=== PATIENT | male | born 1965 | race Caucasian/White ===

== ENCOUNTER 2019-11-26 17:19 | Inpatient (IN) | payer OTHER ==
[~2019-11-26] VITALS: Ht 180.3 cm; Wt 87.1 kg
[2019-11-26 17:22] VITALS: BP 113/71
[2019-11-26 18:40] LABS: URINE BILIRUBIN NEGATIVE (Negative); URINE BLOOD NEGATIVE (Negative); URINE CLARITY CLEAR; URINE COLOR YELLOW; URINE GLUCOSE-RANDOM* NEGATIVE (Negative); URINE KETONES NEGATIVE (Negative); URINE LEUKOCYTES-REFLEX NEGATIVE (Negative); URINE NITRITE-REFLEX NEGATIVE (Negative); URINE PROTEIN (DIPSTICK) NEGATIVE (Negative); URINE SPECIFIC GRAVITY 1.015 (1.005-1.035); URINE UROBILINOGEN 0.2 E.U./dl (0.2-1.0)
[2019-11-26 19:31] LABS: AMP/METHAMP Negative (Negative); BARBITURATES Negative (Negative); BENZODIAZEPINES Negative (Negative); COCAINE Negative (Negative); METHADONE Negative (Negative); OPIATES Negative (Negative); PCP Negative (Negative)
[2019-11-26 19:49] LABS: ABSOLUTE NEUTROPHILS 5.7 thou/uL (1.4-8.2); BASOPHILS 0.8 % (0.0-2.0); EOSINOPHILS 3.3 % (0.0-3.0); HEMATOCRIT 45.1 % (42.0-52.0); HEMOGLOBIN 15.3 gm/dL (14.0-18.0); LYMPHOCYTES 21.8 % (24.0-44.0); MCH 28.5 pg (26.0-34.0); MCV 83.9 fL (80.0-100.0); MONOCYTES 7.2 % (1.0-8.0); PLATELET COUNT 259 thou/uL (150-400); POLYS 66.9 % (36.0-66.0); RBC 5.37 mil/uL (4.50-6.00); RDW 14.1 % (10.5-14.5); WBC 8.6 thou/uL (4.0-11.0)
[2019-11-26 19:54] LABS: CALCIUM 8.4 mg/dL (8.5-10.1); CREATININE 0.9 mg/dL (0.7-1.3)
[2019-11-26 20:00] LABS: ALBUMIN 3.7 g/dL (3.4-5.0); TOTAL BILIRUBIN 0.7 mg/dL (0.2-1.0)
[2019-11-26] MEDS ORDERED: ATIVAN0.5 M1 PO (23:15)
[2019-11-26] MEDS ORDERED: NARDIL15 MG PO (23:15)
--- NOTE | 2019-11-27 07:50 | EKG ---
[facility] [place] [address] ELECTROCARDIOGRAM REPORT Name: GERMAN CABALLERO Room #: REG [facility].#: [id number] Admission: 11/26/19 Attend Phys: Discharge: Date of : 61 Report #: [id number] THIS REPORT FOR: cc: TIMOTHY - Alexandrea family physician/PCP TIMOTHY - Alexandrea family physician/PCP Hari John MD [facility] THIS REPORT FOR: //name// [facility] ED Test Date: 2019-11-26 Test Time: 18:26:29 Pat Name: GERMAN CABALLERO Department: Room: Gender: Director Of Sports Medicine: [facility] : 1965 Requested By: Finesse Monreal Order Number: [id number] MD: Hari John Measurements Intervals [place] Rate: 53 P: 49 SC: 150 QRS: 15 QRSD: 101 T: -8 QT: 421 QTc: 396 Interpretive Statements Sinus bradycardia Borderline T abnormalities, inferior leads No previous ECG available for comparison Electronically Signed On 11-27-2019 7:50:01 CDT by Hari Jonh [email or web address] <ELECTRONICALLY SIGNED> By: Hari John MD, [facility] 11/27/19 0750 1826 25 Hari John MD, FACC /EPI
--- NOTE | 2019-11-27 08:52 | NUR ---
DR. CALDWELL AT BEDSIDE TO SEE PATIENT.
[2019-11-27 15:38] VITALS: BP 103/58
[2019-11-27 15:51] VITALS: BP 104/65
[2019-11-27 17:14] VITALS: BP 105/71
--- NOTE | 2019-11-27 17:57 | NUR ---
PT. ARRIVED AT 1700 ON THE UNIT IN W/C. HE IS AMBULATORY AND STABLE ON HIS FEET. HE IS 5'11" AND WEIGHS IN AT 192 LBS. 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 HE LIKES TO BE CALLED FATHER BUT FOR HERE HE WANTS TO BE CALLED EASTON. HE DOES WEAR GLASSES. HE HAS A PERSONAL AND FAMILY HISTORY OF DEPRESSION AND BIPOLAR. HE STATED HE WAS IN RESIDENCE AT THE [facility] IN [place], [place]. IN AUGUST TO SEPTEMBER THIS YEAR. HE IS FINDING HARD TO COPE AT THIS TIME. HE IS LIVING IN AN ORDER. HE VERBALIZED BEING EXTREMELY NERVOUS. HE STATES HE HAS LOST ALL INTEREST IN THINGS RECENTLY, BUT HIS HOBBIES ARE GOLF AND LIFTING WEIGHTS. HE STATES HIS DAD ABOUT 1.5 YEARS AGO. HE DOES DENY PERSONAL HISTORY OF SI/HI AND AVH. HE DOES STATE THERE IS ARE RELATIVES THAT ARE ACTIVELY SI, SUBSTANCE ABUSE, OR ETOH ABUSE BUT DENIES EACH OF THOSE FOR HIMSELF. HIS ADMITTING VITALS ARE B/P: 105/71, HR 62, T. 97.5, AND O2 100%. SHE HAD SPINAL SURGERY IN 03/24, AND HAD NASAL SURGERY SEVERAL YEARS AGO.
[2019-11-27 20:20] VITALS: BP 117/78
--- NOTE | 2019-11-28 05:11 | NUR ---
11-27-19 CARE TRANSFERRED 1899 OBSERVED PT IN HCP EXAM ROOM 1919, CONSENT FORMS SIGNED. 1999 PT AAOX4, RR EVEN AND NONLABORED ON RA, PT PRESENTS ANXIOUS AND REPORTS HE HAS BEEN FEELING DEPRESSED AND SOMETIMES HAS BEEN HAVING PANIC ATTACKS. PT HAS REMAINED CALM AND COOPERATIVE THROUGHOUT NURSING ASSESSMENT. PT DENIES ANY PAIN, BUT IN HIS HEART, AND PT DENIES SI/SH/HI/VAH. 2019 RECEIVED REPORT FROM HORSES OR MULES TEAMSTER VS B/P 117/78, P 61, R 20, T 97.1 O2SAT 100% RA, VS TAKEN WITH DINAMAP BY HORSES OR MULES TEAMSTER, VALUES ENTERED BY RN. DURING MEDICATION ADMIN PT HAD NO DIFFICULTIES. LATER NOTED PT RESTING WITH EYES CLOSED SUPINE. NOTED PT HAS BEEN UP AND DOWN THROUGHOUT EVENING AND REPORTED HE HAS BEEN HAVING DIFFICULTIES SLEEPING FOR THE LAST COUPLE OF MONTHS. ZERO ACUTE DISTRESS NOTED, PT WILL CONTINUE TO BE MONITOR PER [facility].
[2019-11-28 09:06] VITALS: BP 124/76
--- NOTE | 2019-11-28 10:39 | NUR ---
Alert and orientated X4. Anxious, states about an 8/10. Also reports being depressed. Requesting to speak with Dr. Maier about medications and need to address insomnia. Denies SI/HI. PRN Lorazapam given per order. Also expressing concern about door being open during the night. Ambulates with regular, steady gait. Breath sounds clear. Regular HR auscultated. Color pink with brisk capillary refill and palpable peripheral pulses. No edema noted. Independent with voiding. Active bowel sounds over soft, rounded abdomen. States he had a BM this AM.
[2019-11-28 10:55] LABS: TSH 2.384 uIU/mL (0.358-3.740)
--- NOTE | 2019-11-28 14:17 | NUR ---
Sw met with pt and he dscribed a long HX of depression and worsening anxiety. Pt lives with other shinto Priests in [facility] in a [place]. Pt sees Dr Bryant, and Dr Mark Hayden for psych. Pt describes recent weight loss and anxiety being around people. Sw completed the intake assessment and TP. D/C planning will be home with outpt services
[2019-11-28 20:26] VITALS: BP 110/63
--- NOTE | 2019-11-29 04:00 | NUR ---
Assumed care of pt @ 1900. Pt calm et cooperative this shift. Took medications whole without difficulty. Perseverating over temperature in room. Informed pt that unable to regulate temp in room due to lockout. Moved pt's bed away from vent for comfort. Pt came to nurse's station several times through the noc to c/o temp in room. Ambulates the halls ad yazmin with steady gait. VSWNL. Health assessment with no abnormalities noted at present time. Pt denies SI/HI at present time. Did not socialize with peers. Isolated in room most of shift. Currently resting in bed with eyes closed. Will continue to monitor per protocol.
[2019-11-29 10:14] VITALS: BP 107/66
--- NOTE | 2019-11-29 11:43 | NUR ---
0700 ASSUMED CARE OF PATIENT. 0800 PATIENT RESTING IN BED AND REFUSES TO COME OUT TO EAT. 0900 PATIENT OUT TO DAYROOM FOR BREAKFAST TO EAT. PATIENT IS QUIET AND TAKES FEW BITES OF MEAL. MEDICATIONS GIVEN WHOLE WITHOUT DIFFICULTY. SOMEMEDICATION NOT AVAILABLE DUE TO PYXIS NOT WORKING, PHARMACY NOTIFIED. 1030 PATIENT LYING IN BED, MEDICATIONS GIVEN AT THAT TIME. PATIENT SITTING ON SIDE OF BED STATING " AT 1030PM MY HEART STARTED TO POUND, I RECIEVED MEDICATION BUT DID NOT HELP ME TILL 630 AM. IT ONLY HELPED FOR 30 MIN". "I HAVE NOT SLEPT AND I AM FEELING ANXIOUS AND DEPRESSED". PATIENT ALSO EXPLAINS HOW HIS ANXIETY HAS INCREASED WHILE HERE THE NOISE AND TEMPATURE MAKES HIM FEEL WORSE. PATIENT IS STATING HE IS HOPLESS, DEPRESSES, INCREASED ANXIETY. C/O HIS MINDKEEPS GOING AND HIS BODY FEELS IT IS MOVING WHEN HE IS NOT. PATIENT BELIEVES HE NEED TO GO ELSE WHERE TO GET BETTER AND STATES "THIS PLACE IS NOT HELPING ME, THE ENVIORMENT IS ADDING TO MY ANXIETY". PATIENTS GOAL FOR TODAY IS TO BE CALM AND PATIENTS CONCERN IS THAT HE IS WORRIED HE WILL NOT BE ABLE TO GET THROUGH THIS AND HAVE HIS HEALTH GET WORSE. LUNG SOUNDS CLEAR, BS ACTIVE, VS STABLE, LBM 11/28/19 PER PT. NO C/O PHYSICAL PAIN. WILL CONTINUE TO OBSERVE.
[2019-11-29 19:44] VITALS: BP 131/84
--- NOTE | 2019-11-30 04:39 | NUR ---
Assumed care of pt @ 1900. Pt calm et cooperative this shift. Not as much perseverating as on previous noc shift. Took medications whole without difficulty. Ambulates the halls ad yazmin with steady gait. VSWNL. Health assessment with no abnormalities noted at present time. Denies SI/HI at present time. Discussed ways to alleviate anxiety at length during the shift (e.g. breathing, meditation, reading, etc). Pt verbalized that it helped to alleviate some of his anxiety. Currently resting in recliner in room with eyes open. Will continue to monitor per protocol.
[2019-11-30 09:10] VITALS: BP 113/67
--- NOTE | 2019-11-30 09:40 | NUR ---
0700 ASSUMED CARE OF PATIENT, PATIENT LYING IN BED WITH EYES CLOSED AT THAT TIME. 0800 PATIENT TO DAYROOM FOR BREAKFAST. AFTER BREAKFAST PATIENT RETURNS TO ROOM. 0900 PATIENT IN ROOM SITTING IN CHAIR. LUNG SOUNDS CLEAR, SLIGHT NASAL CONGESTION NOTED. NO C/O PAIN, BS ACTIVE. FRUIT ROOM HAND SITS WITH PATIENT PT HAS SOME CONCERNS OVER HIS CARE AND MEDICATIONS. PATIENT DENIES SI/HI/AH/VH. PATIENT DOES STATE SOME ANXIETY WITH CARE AND FEELING DIFFRENT WITH MEDS. PATIENT STATES " I GOT OFF MY MEDS AND SWITCHED MEDICATION, THATS WHAT WENT WRONG". PATIENT DOES STATE HE SLEPT BETTER (5.4HRS) BECAUSE HE USED EAR PLUGS. PATIENT DOES ISOLATE SELF THE NOISE INCREASES HIS ANXIETY. VS STABLE. WILL CONTINUE TO OBSERVE.
--- NOTE | 2019-11-30 14:51 | H ---
[facility] [place] [address] HISTORY AND PHYSICAL Name: GERMAN CABALLERO Room #: 517-A ADM IN M.R.#: [id number] Admission: 11/27/19 Attend Phys: Fabio Maier DO Discharge: Date of : 61 Report #: [id number] THIS REPORT FOR: cc: TIMOTHY - No family physician/PCP FAM - No family physician/PCP Fabio Maier DO ~ CC: Fabio Maier [facility] physician/PCP DATE OF SERVICE: 11/27/2019 INPATIENT PSYCHIATRIC EVALUATION ATTENDING PHYSICIAN: Fabio Maier DO. SAW MAKER: Yeison Haney MD REASON FOR ADMISSION: Worsening depression, anxiety, wenceslao, fleeting suicidal ideation. SOURCES OF INFORMATION: Emergency Room records; interview with the patient; discussion with Dr. Mark Malagon over the phone, discussion with the patient's outpatient psychiatrist, Dr. Lorne Clemente. HISTORY OF PRESENT ILLNESS: This is a 53-year-old male, single. 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 The patient was indeed referred by Dr. Mark Malagon. The patient himself describes the following symptomatology, depression, anxiety, feeling hypomanic since coming off his psych meds recently. He was recently on Latuda and Wellbutrin and he is not taking phenelzine that he claims is regimen of 30 mg twice a day. He states he feels on edge with little things, makes him go into "a panic attack". His PCP, Dr. Malagon advised psychiatric treatment. He evidently came back to the area in June of this year. He was relieved with his usual help desk internship duties in the end of July. Denying suicidal thoughts currently. Dr. Malagon reported that he feared the patient's anxiety would be too much for him to be in ED overnight. However, the patient made it through. In the morning, I met with him as well as Dr. Malagon did in the Emergency Room. He reports great difficulty coping and wants to leave the hospital. Dr. Malagon' reports a period of cycling bipolar disorder dating back to 4-5 years. The patient was in treatment for 28 days at a facility in [place], [place]. I believe it is called [facility]" . There was neuropsych testing done. I have not gotten a copy of those records sent to me. Later, I got a call back from Dr. Lorne Clemente. I had earlier talked with his office and the patient had no followup appointment since June. The patient has been seeing Dr. Clemente. He is undergoing various [address] [address] HISTORY AND PHYSICAL Name: GERMAN CABALLERO Room #: 517-A [facility] IN M.R.#: [id number] Admission: 11/27/19 Attend Phys: Fabio Maier DO Discharge: Date of : 61 Report #: [id number] medication trials including methylphenidate, Librium. He received Ativan at the Emergency Room about a week ago that Dr. Clemente did not want to prescribe him. Dr. Clemente has also used treatment of intravenous ketamine as well as transcranial magnetic stimulation on the patient. The patient reports a brief 1-day psychiatric hospitalization about a year ago. SOCIAL HISTORY: The patient reports being born in [place], [place]. They worked for [employer] and they moved around [place], [place], including stays in [place], [place]. The patient has 5 sisters and 1 brother. FAMILY HISTORY: Bipolar disorder in his mother who is currently 97. Depression in his older sister and a paternal aunt. Family medical history, father of congestive heart failure. The patient reports roughly 5-6 years ago, he was diagnosed with bipolar disorder. He states at age 17, he had a conversion reaction which essentially extricated in him from depression he developed in his teenage years. He did graduate high school, but not in a regular class due to his depression. He graduated from [employer] in his mid 20s and it is called the [employer]. He prays a couple of times a week. He reports he had a neck surgery in 03/2018 that has left him with numbness and tingling in his left finger. He reports a stuffy nose. Sounds like he has been using Afrin nightly, which I have advised. In reports, when he was an active help desk internship, he did have situations where he was noted to lose his temper and things like that. SOCIAL HISTORY: Denied tobacco, alcohol or recreational drug use. HOME MEDICATIONS: Noted to be phenelzine 15 mg p.o. b.i.d., he states 30 mg p.o. b.i.d.; lorazepam 0.5 mg p.o. q. 8 hours p.r.n. ALLERGIES: No known allergies. REVIEW OF SYSTEMS: From the ER, CONSTITUTIONAL: Denies fever, chills, malaise, or unexplained weight change. EYES: Denies eye pain, visual change or discharge. HENT: Denies hearing changes, ear drainage, ear infections, ear pain, neck pain or neck stiffness. RESPIRATORY: Denies cough, shortness of breath, hemoptysis or respiratory distress. CARDIOVASCULAR: Denies chest pain with exertion or edema. GASTROINTESTINAL: Denies abdominal pain, nausea, vomiting or diarrhea. GENITOURINARY: Denies burning, frequency or dysuria. MUSCULOSKELETAL: Denies back pain, joint pain, muscle weakness or myalgias. SKIN: Denies rash. NEUROLOGIC: Reports tingling in his left hand. Denied loss of consciousness or weakness. [facility] [address] [place] [address] HISTORY AND PHYSICAL Name: GERMAN CABALLERO Room #: 517-A ADM IN M.R.#: [id number] Admission: 11/27/19 Attend Phys: Fabio Maier DO Discharge: Date of : 61 Report #: [id number] Otherwise, 10-point review of systems is negative. Weight 86.18 kg, BMI 26.8. Physical exam grossly normal. LABORATORY DATA: EKG was done in the ER, which revealed the following. Ventricular rate 53, SC interval 150 milliseconds, QT 421, QTC 396, rate is sinus bradycardia. He is rather athletics, so not worried about the bradycardia. Laboratories from the ER: CBC was within normal limits with white count 8.6, H and H 15.3 and 45.1, platelet count 259. Chemistry: Sodium 138, potassium 4.0, chloride 104, bicarbonate 25, anion gap 9, BUN 17, creatinine 0.9, estimated GFR 88, glucose 110, calcium 8.4. Total bilirubin 0.7, AST 15, ALT 19, alkaline phosphatase 60, total protein 7.0, albumin 3.7. Urinalysis within normal limits. Toxicology negative. Alcohol less than 10. Marijuana was negative. Dr. Clemente did have concern that the patient may be drinking wine at night, the patient has denied this. COVID test was negative. PHYSICAL EXAMINATION: VITAL SIGNS: Temperature 36.2, pulse 61, respirations 20, BP 115/78, O2 sat 100%. MUSCULOSKELETAL: Normal gait and station. MENTAL STATUS EXAMINATION: This is a well-developed, well-nourished male, wearing glasses, appearing gentleman of stated age. Attention fair. Concentration fair. Speech is normal rate, volume and tone. Thought process is linear and goal directed. 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 Memory not formally tested. Mood and affect congruent, constricted, anxious at times. Denied auditory, visual, or tactile hallucinations. Denied suicidality or homicidality. Some helplessness, no hopelessness. Memory not formally tested. Insight limited. Judgment limited. Fund of knowledge above average. 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 DIAGNOSIS: At this time, bipolar II disorder, most recent episode depressed, Unspecified Anxiety. PLAN: Evaluate and stabilize in inpatient Geriatric Psychiatry, start him on lithium carbonate 300 mg p.o. b.i.d. Given his historical response to monoamine oxidase inhibitors, I am inclined to keep him on a dose of 15-30 mg b.i.d. and t.i.d. of phenelzine. ESTIMATED LENGTH OF STAY: 7-[address] [address] HISTORY AND PHYSICAL Name: GERMAN CABALLERO Room #: 517-A ADM IN M.R.#: [id number] Admission: 11/27/19 Attend Phys: Fabio Maier DO Discharge: Date of : 61 Report #: [id number] STRENGTHS: Insured. He is a help desk internship, intelligent, has support from people. WEAKNESSES: Include chronicity and perhaps under treatment of his psychology. Time spent on this patient and coordination of care, review of records was over 120 minutes, greater than 50% spent on counseling and coordination of care including on my desk, in the inpatient unit, in the ER, phone conversations and in person with Dr. Malagon, over the phone with Dr. Clemente. <ELECTRONICALLY SIGNED> By: Fabio Maier DO 11/30/19 1451 [id number] [id number] Fabio Maier DO /nt
[2019-11-30 20:00] VITALS: BP 112/67
--- NOTE | 2019-12-01 04:27 | NUR ---
Assumed care @ 1900. Pt calm et cooperative this shift. Took medications whole without difficulty. Ambulates the halls ad yazmin with steady gait. VSWNL. Health assessment with no abnormalities noted at present time. Denies SI/HI at present time. Continues to perseverate over his medication et the lack of effectiveness in his opinion. Reminded pt that it does take time for psychiatric medications to work et to gain a therapeutic level. Informed pt that he would be having a lab level drawn soon to determine if the level had been achieved. Pt verbalized understanding. Currently resting in bed with eyes closed. Will continue to monitor per protocol.
[2019-12-01 07:00] VITALS: BP 125/62
--- NOTE | 2019-12-01 09:56 | NUR ---
0700 ASSUMED CARE OF PATIENT, PATIENT IN ROOM AWAKE AT THAT TIME. 0815 PATIENT TO DAYROOM TO EAT THEN RETURNS TO ROOM. VS STABLE, LS CLEAR, BS ACTIVE. 0910 MEDICATIONS TAKEN WHOLE WITHOUT DIFFICULTY. PATIENT NOTED PACING IN THE [place] AT TIMES. PATIENT HANDS MANAGER MAINTENANCE A LIST OF ITEMS HE WOULD LIKE TO GET, SOME ARE MEDICATIONS AND WILL DISCUSE WITH DR. PATIENT SLEPT 6.6 HRS AND STATES HE SLEPT OK BUT WAKES UP MULTIPLE TIMES. PATIENT AMBULATES WELL WITH STEADY GAIT. NO C/O PAIN. WILL CONTINUE TO OBSERVE
--- NOTE | 2019-12-01 10:13 | NUR ---
PT. ASKED TO TALK TO THIS COLLECTION SUPERVISOR. PT. TALKED ABOUT BEING SEVERLY DEPRESSED AND SAD. HE STATES HE IS BEGINING TO WANDER IF HE WILL NOT RECOVER. HE STATES THE MEDS HE IS ON IS NOT WORKING FOR HIM. HE THEN STATED HIS EARS ARE HURTING. DR. GOYAL HERE AND LOOKED AT HIS EARS. HE HAS A BIT OF BLOOD IN THE LEFT EAR AND AN INFECTION. TO ORDER DROPS FOR THE EARS.
[2019-12-01 20:18] VITALS: BP 126/76
--- NOTE | 2019-12-01 22:33 | NUR ---
ASSUMED PT CARE AROUND 1930. AXOX4. INDEPENDENT WITH ADLs. VSS. NO S/S ACUTE DISTRESS NOTED OR REPORTED AT THIS TIME. WILL CONT TO MONITOR FOR ANY CHANGES IN CONDITION.
--- NOTE | 2019-12-02 03:03 | NUR ---
PATIENT CAME OUT TO NURSE STATION AROUND 0200. HE STATES THAT HE FEELS DRUGGED AND DROWSY. HE STATES THAT THIS IS THE THIRD NIGHT THAT HE HAS AWOKE TO FEEL THIS WAY AND NOT ABLE TO GO BACK TO SLEEP. HE DOES SLEEP WITH EARPLUGS IN. HE STATES THERE'S TOO MUCH NOISE AND LIGHTS AND THE BEDROOM DOORS HAVE TO STAY OPEN ADDING TO THE ISSUE. PATIENT IS A/0X3-4. HE DID GO BACK TO ROOM TO SITY FOR AWHILE BEFOE GOING BCK TO BED. VISITED WITH PATIENT FOR AWHILE AND TRIED TO CONSOLE. PATIENT IS NEEDY AND NEEDS LOTS OF REASSURNACE. ROUTINE ROUNDS TO ASSESS STATUS AND SAFETY OF PATIENT. DENIES SI/HI/AVH. WILL CONTINUE TO MONITOR.
--- NOTE | 2019-12-02 05:22 | NUR ---
PATIENT HAS BEEN UP FROM 0200 TO PRESENT. HE REQUESTS NURSE TO TALK WITH HIM. HE IS WANTING TO BE MOVED TO HOME AND WORK ON HIS ISSUES IN OUT PT SETTING. HE FEELS HE NEEDS TO BE AROUND HIS FRIENDS AND BE OUTSIDE. HE STATES HE IS UNABLE TO SLEEP IN THE [facility] D/T NOISE OF HIS ROOM AND SURROUNDINGS. HE FEELS HE IS OUT OF PLACE D/T HIS AGE. HE DOES NOT FEEL THIS STAY IS THERAPEUTIC D/T DISTRACTIONS OF THE UNIT. HE STATES HE JUST WANTS TO BE HAPPY AGAIN. HE STATES HE FEELS ANGER INSIDE HIM BUT HE HOLDS IT IN AND WOULD NOT TAKE IT OUT AGGRESSIVELY. HIS ANGER IS TOWARDS HIMSELF. 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 HE IS NEEDY IN THE SENSE THAT HE WANTS SOMEONE WITH HIM ALOT TO DISCUSS HIS FEELINGS. HE STATES HE FEELS IT'S OK THAT HE WANTS SOMEONE TO FIX HIS MEALS AND TAKE CARE OF HIM. HE STATES HE THINKS HE'S BURNT OUT AT HIS WORK AND NEEDS A VACATION BUT IS HAVING A HARD TIME FINDING HAPPINESS AND ENJOYMENT AT THIS TIME. THIS NURSE SPENT 40 MINUTES SITTING AND TALKING WITH HIM. LET HIM KNOW THAT HE HAS TO GIVE THE MEDICATIONS TIME TO WORK AND NOTHING CAN HURRY THAT. HE DENIES SI/HI/AVH. HE IS A/0X4. 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 ENCOURAGED HIM TO SPEAK WITH THE DR ABOUT HIS REQUESTS FOR OUTPT THERAPY. LET HIM KNOW THAT IT IS TOUGHER TO CHECK LABS SUCH LITHIUM LEVELS OUTSIDE THE HOSPITAL. CLONAZPAM 0.5 MG GIVE AT 0515 D/T PATIENT UP WALKING AND STATES HE FEELS EDGY AND UNABLE TO SIT STILL. PATIENT STATES LORAZEPAM WORKS BETTER FOR HIM AND HE WOULD RATHER HAVE THAT. TOLD HIM CLONAZEPAM IS ALL I HAVE FOR NOW. CONTINUING TO MONITOR.
[2019-12-02 07:37] VITALS: BP 109/68
--- NOTE | 2019-12-02 18:24 | NUR ---
0700 ASSUMED CARE OF PATIENT, PATIENT IN BED AT THAT TIME. 0900 CHEST PAINTING LEADER TO ROOM TO ASSESS PT PATIENT TAKES MEDICATION WHOLE WITHOUT DIFFICULTY. PATIENT OUT OF ROOM TO DAYROOM FOR BREAKFAST, PATIENT UPSET DUE TO NOT RECIEVING CORRECT BREAKFAST ORDERED NIGHT BEFORE. PATIENT TO ROOM REQUEST TO TAKE SHOWER. PATIENT ISOLATES IN ROOM MOST OF THE TIME ONLY COMING OUT FOR MEALS. PATIENT CONTINUES TO C/O INCREASED ANXIETY STATING " I DO NOT BEING HERE IS HELPING ME". PATIENT AMBULATING IN [place] AT TIMES ASKING FOR PHONE MULTIPLE TIMES TODAY. PATIENT EXHIBITS INCREASED ANXIETY BECAUSE PT LOST LIST OF PHONE NUMBERS. PATIENT HAPPY THAT HIS LIST OF NUMBERS WAS FOUND. PATIENT RETURNS TO ROOM. WILL CONTINUE TO OBSERVE
[2019-12-02 20:22] VITALS: BP 133/73
--- NOTE | 2019-12-03 06:37 | NUR ---
ASSUMED PT CARE AROUND 1930. AXOX4. INDEPENDENT WITH ADLs. VERY WORRIED ABOUT MEDICATION REGIMEN. NO S/S ACUTE DISTRESS NOTED OR REPORTED AT THIS TIME. WILL CONT TO MONITOR FOR ANY CHANGES IN CONDITION.
[2019-12-03 09:05] VITALS: BP 98/68
--- NOTE | 2019-12-03 11:26 | NUR ---
0700 ASSUMED CARE OF PATIENT, PATIENT SITTING IN GERICHAIR IN ROOM. PATIENT OUT TO DAYROOM FOR BREAKFAST. PATIENT UPSET THAT HE IS NOT RECIEVING HIS MEALS ORDERED. US HELPPED AND REORDERED DAILY MENU'S FOR PATIENT. PATIENT TO DESK ASKING FOR EYE GTTS. INFORMED PATIENT THAT EYE DROPS WHERE SCHEDULED BUT WOULD TALK TO DR FOR PRN ORDER. ORDER RECIEVED BY DR SYLVESTER. PATIENT IN ROOM AT 0845, MEDICATION GIVEN WHOLE WITHOUT DIFFICULTY. EDUCATION GIVEN ON MEDICATIONS. PATIENT CONTINUES TO C/O ANXIETY, DENIES SI/HI. 0910 PATIENT PRESENT IN GROUP. 1120 PATIENT C/O INCREASED ANXIETY, CLONAZAPAM 0.5MG PO GIVEN PER PATIENTS REQUEST. PATIENT STATES "THE CLONAZAPAM HELPED ME YESTERDAY TO BE CALMMER. WILL CONTINUE TO OBSERVE.
[2019-12-03 19:29] VITALS: BP 103/51
--- NOTE | 2019-12-04 02:54 | NUR ---
Assumed pt care at 1930. Pt is alert and oriented. No sign of distress noted in pt. Pt is up and steady and ambulatory. Assesment completed and documented. cheduled meds administered to pt. Tolerated PO intake.Pt was most concerned during the shift about how he wakes up from sleep and getting a little anxious. Encouraged pt to try and get some rest and sleep for the night. No acute events overnight. No further needs at this time.
[2019-12-04 07:23] VITALS: BP 111/68
[2019-12-04] MEDS ORDERED: NARDIL15 MG PO (09:20)
[2019-12-04] MEDS ORDERED: AMBIEN 10 MG TA10 MG PO (09:22)
[2019-12-04] MEDS ORDERED: LITHIUM CARBON300 M7 PO (09:23)
[2019-12-04] MEDS ORDERED: VITAMIN D325 MC1 PO (09:24)
[2019-12-04] MEDS ORDERED: HOME MEDICATION OPHTHALMIC (09:24)
[2019-12-04 09:36] VITALS: BP 111/68
--- NOTE | 2019-12-04 09:39 | NUR ---
ARLYN met [facility] pt extensively yesterday and discussed d/c plans. He states he is not gettigna enough sleep and wants to stay at his friends place. Later it was decided with the [facility] and his friend Santosh Lawrence that he return to his [facility]. Arlyn and Dr cisneros discussed this with the pt and he will d/c 12/03 at 10:30. Arlyn set up transportation with the [facility] to [place]. Arlyn provided pt with a handout regarding [facility] and they will also provide the pt with a list of providers that may take his insuracne. Arlyn did talk to [facility] and and they will accept the referral. ARLYN educated the pt about the intake process for [facility].
--- NOTE | 2019-12-04 10:50 | NUR ---
Assumed care 0700. Has many questions concerning the discharge process. Ride= Brother Juarez to provide transportation to home. Denies SI/HI/AH/VH. He was given discharge instructions, new psychiatrist referral and knows to call for an appointment. Given meds from home from pharmacy. Realizes some of the meds are not to be taken. He will compare med list, get Rx's filled and eliminate meds not ordered. Given discharge packet of papers to take to his physician. given information on medications-monographs. Feels comfortable in leaving.
--- NOTE | 2019-12-05 23:00 | D ---
[facility] [place] [address] DISCHARGE SUMMARY Name: GERMAN CABALLERO Room #: 517-A [facility] IN M.R.#: [id number] Admission: 11/27/19 Attend Phys: Fabio Maier DO Discharge: 12/04/19 Date of : 61 Report #: [id number] THIS REPORT FOR: cc: TIMOTHY - No family physician/PCP FAM - No family physician/PCP Fabio Maier DO ~ THIS REPORT FOR: //name// CC: Fabio Maier FAM physician/PCP DATE OF SERVICE: 12/04/2019 INPATIENT PSYCHIATRIC DISCHARGE SUMMARY ATTENDING PHYSICIAN: Fabio Maier DO IT SECURITY ANALYST: Officially Yeison Haney M.D. Also, Dr. Mark Malagon assisted with this case, who is his PCP and also has privileges here at [facility]. DISCHARGE DIAGNOSES: Bipolar 2 disorder, most recent episode depressed, unspecified anxiety. The patient has some borderline personality traits. The patient will be discharging to the [facility] in [place], [place]. The patient's aftercare will be at [facility]. His PCP will remain Dr. Malagon. He will need an intake at [facility]. DISCHARGE MEDICATIONS: I elected not to give him a prescription for zolpidem, so that was removed. I did give him a prescription for clonazepam 1 mg, #30, one to two tabs at bedtime for sleep. Also, 30-day prescription was given for lithium carbonate 300 mg 2 tabs at 600 mg p.o. b.i.d., Rx was given for 300 mg tablet, #120, cholecalciferol 5000 International Units p.o. daily. In addition, the patient was given a script for phenelzine which is Nardil 15 mg, take 2 tabs that is 30 mg p.o. b.i.d. for depression. He was not given a prescription for lorazepam. The patient's diet is regular, except that he will need to maintain restrictions needed for monoamine oxidase inhibitors such as avoidance of salami processed meats, certain cheeses like gouda, tyramine. The patient has been prescribed this medication before and is aware of the consequences of violating the diet including hypertensive urgency and stroke. LABORATORY DATA: The patient's laboratories this admission, CBC was within normal limits. Chemistries were also within normal limits except glucose 110, calcium slightly low at 8.4. ALT low at 19. Vitamin D level was 30, elected not to replace, the TSH 2.384. B12 level lower end of normal at 412. The patient's lithium level on 11/30 came back at 0.3. He was at 300 mg p.o. b.i.d. [address] [address] DISCHARGE SUMMARY Name: GERMAN CABALLERO Room #: 517-A [facility] IN M.R.#: [id number] Admission: 11/27/19 Attend Phys: Fabio Maier DO Discharge: 12/04/19 Date of : 61 Report #: [id number] of lithium that was increased to 600 mg p.o. b.i.d. UDS was negative. COVID-19 PCR serology was negative. REASON FOR ADMISSION: Back on the or so november, 53-year-old male presented by referral of Dr. Malagon. The patient reports being hypomanic, on edge from the little things. The patient previously had been treated by Dr. Lorne Clemente, who he does not want to return to treatment with. Had been given transcranial magnetic stimulation and intravenous ketamine therapy earlier this year without lasting effect. There is concern that the patient cannot function. 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 HOSPITAL COURSE: The patient was admitted to [facility] Unit and I initially started him on lithium 300 mg p.o. b.i.d. I had telephone conversations with Dr. Lorne Clemente and then Dr. Fagan in [place], [place], who supposedly has treated the patient for close to 30 years. The patient does have former bipolar illness according to both these clinicians, so lithium therapy was induced. EKG was checked and he was a suitable candidate for it. In addition, Dr. Fagan felt strongly that Nardil was in the patient's best interest and had failed to respond to other medications, so that was started at a dose of 30 mg twice a day. Sleep was intermittently a problem. The patient complained of worse sleep and the staff documented. During the admission, the patient was quite needy at times. Also, regarding efforts that were tried, he had frequently had self-defeating comments. The patient also during admission presented records he had on his phone from a residential facility, where he was at in the [place], [place] area earlier this year. They did a neuropsych testing there, showed a full scale WAIS IQ of 93. It sounds like the personality testing that was done came back as invalid, I am discerning that from the interpretation that described they were treating him with radically open DBT and most recently, the patient's therapy was with an individual therapist who was seen in a park because of the epidemic. EKG on 11/25 showed a ventricular rate of 53, MI interval of 150, QT 421, QTc 396. PHYSICAL EXAMINATION: VITAL SIGNS: On the day of discharge, temperature 36.8, pulse 59, respirations 20, BP 111/68, weight 87.09 kg. MUSCULOSKELETAL: Normal gait and station. GENERAL: Wearing glasses. MENTAL STATUS EXAMINATION: This is a well-developed, fairly nourished male, appearing stated age. Attention intact. Concentration intact. Speech, soft. Thought process is linear and goal directed. Thought content focused on discharge, but still asking needy questions. I did educate him this Monday [facility] [address] [place] [address] DISCHARGE SUMMARY Name: GERMAN CABALLERO Room #: 517-[facility] IN M.R.#: [id number] Admission: 11/27/19 Attend Phys: Fabio Maier DO Discharge: 12/04/19 Date of : 61 Report #: [id number] morning, he needs to get a lithium level drawn before his a.m. dose. The patient can do that either at Dr. Malagon' office or a nearby hospital or a [facility]. mood/affect anxious, congruent, constricted I gave him a paper script for that. Denied SI or HI. Denied helplessness and hopelessness. Denied auditory, visual, or tactile hallucinations. Memory not formally tested. Insight limited. Judgment fair to limited. Fund of knowledge above average. PROGNOSIS: For this patient is guarded given long psychiatric history, limited response to numerous modalities tried this year. It will be essential for the patient to be compliant with his psychiatrist and at least maintain individual therapy or I think chances will be less likely than average that he could return to his previous duties in the [employer]. Time spent on interview, review of records, coordination of care of this patient today is in the 45-minute range. <ELECTRONICALLY SIGNED> By: aFbio Maier DO 12/05/19 2300 [id number] Fabio Maier DO /nt
== END 2019-12-04 11:30 | disposition home or self-care (01) | DRG 885 ==
LOC: ER 17:19 → SBH 11-27 11:39 → EROBS 11-27 11:39 → SBH 11-27 11:39
PROVIDERS: Emergency Medicine; ADMIT Psychiatry & Neurology Psychiatry; ATTEND Psychiatry & Neurology Psychiatry
DX: F31.81 Bipolar II disorder (principal); R45.851 Suicidal ideations; R45.1 Restlessness and agitation; F41.9 Anxiety disorder, unspecified; F41.0 Panic disorder [episodic paroxysmal anxiety]; Z20.828 Contact with and (suspected) exposure to other viral communicable diseases; Z79.899 Other long term (current) drug therapy; Z87.891 Personal history of nicotine dependence
CPT/HCPCS: 10880